=== PATIENT | female | born 1980 | race Caucasian/White ===

== ENCOUNTER 2016-12-12 00:11 | Emergency (ER) | payer OTHER ==
[2016-12-12 00:13] VITALS: BP 141/94; PULSE 88; RESP 16; TEMP 98.8; O2SAT 97
--- NOTE | 2016-12-12 01:03 | PD ---
HPI Chief Complaint: Respiratory Symptoms Time Seen by Provider: 00:54 Travel History International Travel<30 days: No Contact w/Intl Traveler<30days: No Traveled to known affect area: No History of Present Illness HPI 36-year-old female presents to emergency department for evaluation of cough and chest congestion worsening over the last 3 weeks. Patient states that she believes she may have bronchitis but the cough has been more into her chest and is productive of a yellow-green sputum at times. She had a fever 3 days ago but has been afebrile since. No nausea or vomiting. No chest pain. She has no other symptoms to report. [facility] Past Medical History Medical History: Denies Significant Hx Medical other: Yes (HERSCHSPRUNG'S DISEASE A CHILD) Immunizations Current: Yes Triglycerides - High: Yes ?: Not : 2 Para: 0 Miscarriage: 2 Dilation and Curettage (D&C): Yes (X2) Past Surgical History Appendectomy: Yes Gynecologic Surgery: Yes (OVARY, FALLOPIAN TUBE, AND CYST REMOVAL) Other Surgery: Yes (VEIN REMOVED) Social History Alcohol Use: Yes Tobacco Use: No Substance Use: No Allergies-Medications (Allergen,Severity, Reaction): Coded Allergies: No Known Allergies (Unverified , 12/12/16) Reported Meds & Prescriptions Reported Meds & Active Scripts Active Promethazine-Codeine Liq 6.25-10 Mg/5 Ml Syrp 5-10 Ml PO Q6H PRN Medrol Dosepak (Methylprednisolone) 4 Mg Dspk 4 Mg PO DIRECTED Per Pharmacist direction Zithromax Z-Anibal (Azithromycin) 250 Mg Dspk 250 Mg PO DIRECTED 500 MG (2 tabs) day 1, then 1 tab days 2-5. Review of Systems Except as stated in HPI: all other systems reviewed are Neg Physical Exam Narrative GENERAL: Well-nourished female patient in no acute distress SKIN: Focused skin assessment warm/dry. HEAD: Atraumatic. Normocephalic. EYES: Pupils equal and round. No scleral icterus. No injection or drainage. ENT: No nasal bleeding or discharge. Mucous membranes pink and moist. NECK: Trachea midline. No JVD. CARDIOVASCULAR: Regular rate and rhythm. No murmur appreciated. RESPIRATORY: No accessory muscle use. Coarse, diminished bases to auscultation. Breath sounds equal bilaterally. GASTROINTESTINAL: Abdomen soft, non-tender, nondistended. Hepatic and splenic margins not palpable. MUSCULOSKELETAL: No obvious deformities. No clubbing. No cyanosis. No edema. NEUROLOGICAL: Awake and alert. No obvious cranial nerve deficits. Motor grossly within normal limits. Normal speech. PSYCHIATRIC: Appropriate mood and affect; insight and judgment normal. Data Data Last Documented VS Vital Signs Date Time Temp Pulse Resp B/P (MAP) Pulse Ox O2 Delivery O2 Flow Rate FiO2 12/12/16 02:41 12/12/16 00:13 98.8 88 16 97 Room Air Orders Orders Chest, Single Ap (12/12/16 ) Albuterol-Ipratropium Neb (Duoneb Neb) (12/12/16 01:15) Dexamethasone Inj (Decadron Inj) (12/12/16 01:15) MDM Medical Decision Making Medical Screen Exam Complete: Yes Emergency Medical Condition: Yes Medical Record Reviewed: Yes Differential Diagnosis Bronchitis versus pneumonia versus influenza Narrative Course 36-year-old female presents to emergency department for evaluation of cough and chest congestion. Patient has coarse cough with scattered rhonchi and diminished bases. Chest x-rays without acute cardiopulmonary disease. Patients can a DuoNeb treatment and Decadron IM here. She'll be discharged home on oral antibiotics, steroids, and provided a cough syrup. She is counseled on care and agrees to return immediately with any acute worsening of symptoms. Diagnosis Primary Impression: Upper respiratory infection Qualified Codes: J06.9 - Acute upper respiratory infection, unspecified Referrals: Primary Care Physician Patient Instructions: General Instructions, Upper Respiratory Infection (DC) Additional Instructions: Humidified air may help to alleviate symptoms Tylenol and/or ibuprofen as directed on the package as needed for fever Maintain adequate oral hydration Return immediately to the emergency department with any acute worsening of symptoms Med/Other Pt SpecificInfo: Prescription(s) given Scripts Promethazine-Codeine Liq (Promethazine-Codeine Liq) 6.25-10 Mg/5 Ml Syrp 5-10 ML PO Q6H Y for COUGH AND/OR COLD SYMPTOMS, #150 ML 0 Refills Prov: Joanne Young 12/12/16 Methylprednisolone Dosepak (Medrol Dosepak) 4 Mg Dspk 4 MG PO DIRECTED, #1 DSPK 0 Refills Per Pharmacist direction Prov: Joanne Young 12/12/16 Azithromycin (Zithromax Z-Anibal) 250 Mg Dspk 250 MG PO DIRECTED for Infection, #1 DSPK 0 Refills 500 MG (2 tabs) day 1, then 1 tab days 2-5. Prov: Joanne Young 12/12/16 Disposition: 01 DISCHARGE HOME Condition: Stable Joanne Young Dec 12, 2016 01:03
[2016-12-12] MEDS ORDERED: RESP: ALBUTEROL 2.5 MG/IPRATROPIUM 0.5 MG NEB (SCH) NEB ONE (01:15)
[2016-12-12] MEDS ORDERED: DEXAMETHASONE SOD PHOS 20 MG/5 ML VIAL IM ONE (01:15)
--- NOTE | 2016-12-12 01:49 | RADRPT ---
EXAM DATE/TIME: 12/12/2016 01:44 [place] COMPARISON: No previous studies available for comparison. INDICATIONS : Patient complains of cough, congestion, and some shortness of breath. Also some chest pain when cough ing. MEDICAL HISTORY : None. SURGICAL HISTORY : None. ENCOUNTER: Initial ACUITY: 3 weeks PAIN SCORE: 2/10 LOCATION: chest FINDINGS: A single view of the chest demonstrates the lungs to be symmetrically aerated without evidence of mas s, infiltrate or effusion. The cardiomediastinal contours are unremarkable. Osseous structures are intact. CONCLUSION: 1. No acute cardiopulmonary disease. Osvaldo Pisano MD on December 12, 2016 at 1:47 Board Certified Radiologist. This report was verified electronically.
[2016-12-12] MEDS ORDERED: ZITHTAB PO (01:54)
[2016-12-12] MEDS ORDERED: PROM6.256 PO (01:54)
[2016-12-12] MEDS ORDERED: MEDR4PAK PO (01:54)
== END 2016-12-12 02:29 | disposition home or self-care (01) ==
LOC: NEPD 00:11
DX: J06.9 Acute upper respiratory infection, unspecified (principal)
CPT/HCPCS: 71010; 94664; 96372; 99284; J1100